=== PATIENT | male | born 1950 | race African-American/Black ===

== ENCOUNTER 2017-11-14 11:12 | Emergency (ER) | payer MEDICARE, OTHER ==
[~2017-11-14] VITALS: Ht 188 cm; Wt 91.6 kg
[2017-11-14] MEDS ORDERED: BP MED (11:25)
[2017-11-14] MEDS ORDERED: INSULIN (11:25)
--- NOTE | 2017-11-14 11:25 | NUR ---
pt says feels good already, wants to go home, refuses heplock and blood draw at this time
--- NOTE | 2017-11-14 11:35 | NUR ---
haydee marquez at bedside talking to pt.
--- NOTE | 2017-11-14 12:13 | NUR ---
Patient does not wish to proceed with medical care recommended by Dr. العراقي ). Patient given information related to possible complications, up to and including , which could occur as a result of leaving the hospital at this time. Patient verbalizes understanding of risks involved due to leaving against medical advice. Patient has signed AMA form.
[2017-11-14 12:16] VITALS: BP 121/66
== END 2017-11-14 12:17 | disposition left against medical advice (07) ==
LOC: ER 11:21
DX: R55 Syncope and collapse (principal); I10 Essential (primary) hypertension; E11.9 Type 2 diabetes mellitus without complications; Z79.4 Long term (current) use of insulin
CPT/HCPCS: 93005; A4663